=== PATIENT | male | born 1940 | race Caucasian/White ===

== ENCOUNTER 2018-06-18 16:44 | Inpatient (IN) | payer MEDICARE, OTHER ==
[~2018-06-18] VITALS: Ht 175.3 cm; Wt 60.9 kg
[2018-06-18 18:30] LABS: BASOPHIL % 0.1 % (0-2); PLATELET COUNT 227 x10^3mcL (130-400)
[2018-06-18 18:33] LABS: RED CELL DISTRIBUTION WIDTH 16.8 % (11.5-14.5)
[2018-06-18 18:40] LABS: CALCIUM 8.8 mg/dL (8.5-10.1); CARBON DIOXIDE 23.6 mmol/L (21-32); CHLORIDE SERUM 100 mmol/L (98-107); CREATININE SERUM 2.1 mg/dL (0.7-1.3); GLUCOSE SERUM 80 mg/dL (74-106); POTASSIUM SERUM 3.9 mmol/L (3.5-5.1); SODIUM SERUM 136 mmol/L (136-145)
[2018-06-18 18:53] LABS: ALBUMIN 3.4 g/dL (3.4-5.0); ALKALINE PHOSPHATASE 51 U/L (46-116); ALT/SGPT 28 U/L (16-63); AST/SGOT 87 U/L (15-37); BILIRUBIN TOTAL 0.36 mg/dL (0.20-1.00); LIPASE 178 IU/L (73-393)
[2018-06-18 18:54] LABS: TOTAL PROTEIN, SERUM 8.3 g/dL (6.4-8.2)
[2018-06-18] MEDS ORDERED: GOOD SENSE ASPI81 M3 (20:38)
[2018-06-18] MEDS ORDERED: ATENOLOL25 MG (20:38)
[2018-06-18] MEDS ORDERED: [UNRECOGNIZED DRUG - CODE] (20:39)
[2018-06-18 22:02] VITALS: BP 134/74
[2018-06-18 23:37] LABS: MAGNESIUM 1.7 mg/dL (1.8-2.4); PHOSPHOROUS 2.7 mg/dL (2.5-4.9)
[2018-06-18 23:40] LABS: CHOLESTEROL/HDL RATIO 2.4
[2018-06-19 05:50] VITALS: BP 151/51
[2018-06-19 05:56] VITALS: Ht 175.3 cm; Wt 60.9 kg
[2018-06-19 07:10] LABS: CALCIUM 8.4 mg/dL (8.5-10.1); CHLORIDE SERUM 103 mmol/L (98-107); CREATININE SERUM 1.7 mg/dL (0.7-1.3); GLUCOSE SERUM 82 mg/dL (74-106); MAGNESIUM 1.9 mg/dL (1.8-2.4); PHOSPHOROUS 3.4 mg/dL (2.5-4.9); POTASSIUM SERUM 4.2 mmol/L (3.5-5.1); SODIUM SERUM 137 mmol/L (136-145)
[2018-06-19 07:21] LABS: PLATELET COUNT 201 x10^3mcL (130-400)
[2018-06-19 07:24] LABS: BASOPHIL % 0 % (0-2); RED CELL DISTRIBUTION WIDTH 17.1 % (11.5-14.5)
[2018-06-19 08:36] VITALS: BP 151/51
[2018-06-19 08:57] VITALS: BP 169/57
[2018-06-19 11:39] LABS: UA SPECIFIC GRAVITY 1.025 (1.005-1.035); microscopic required? YES; urine erythrocyte 2+ (NEGATIVE)
[2018-06-19 16:15] VITALS: BP 170/65
[2018-06-19 21:55] VITALS: BP 146/49
[2018-06-20 05:42] VITALS: BP 98/56
[2018-06-20 06:56] LABS: CARBON DIOXIDE 21.2 mmol/L (21-32); CHLORIDE SERUM 99 mmol/L (98-107); CREATININE SERUM 1.4 mg/dL (0.7-1.3); GLUCOSE SERUM 87 mg/dL (74-106); MAGNESIUM 1.5 mg/dL (1.8-2.4); POTASSIUM SERUM 3.3 mmol/L (3.5-5.1); SODIUM SERUM 129 mmol/L (136-145)
[2018-06-20 08:41] VITALS: BP 134/50
[2018-06-20 09:28] LABS: PLATELET COUNT 208 x10^3mcL (130-400); RED CELL DISTRIBUTION WIDTH 17.4 % (11.5-14.5)
[2018-06-20 14:37] VITALS: BP 133/62
[2018-06-20 16:44] VITALS: BP 95/53
[2018-06-20 17:08] LABS: BAND NEUTROPHIL 11 % (0-10); MONOCYTE 9 % (0-7); SEGMENTED NEUTROPHILS 61 % (37-75)
[2018-06-20 17:09] LABS: PLATELET MORPHOLOGY PLATELETS NORMAL; ovalocyte/elliptocyte 1+; rbc morphology (normal/abnorm) ABNORMAL (NORMAL)
[2018-06-20 20:11] VITALS: BP 144/64
[2018-06-20 23:58] LABS: AMPHETAMINE QUAL UR NONE DETECTED (See below)
[2018-06-21 05:34] VITALS: BP 142/51
[2018-06-21 06:34] LABS: CALCIUM 8.1 mg/dL (8.5-10.1); CARBON DIOXIDE 24.2 mmol/L (21-32); CHLORIDE SERUM 102 mmol/L (98-107); CREATININE SERUM 1.3 mg/dL (0.7-1.3); GLUCOSE SERUM 84 mg/dL (74-106); MAGNESIUM 2.1 mg/dL (1.8-2.4); PHOSPHOROUS 2.6 mg/dL (2.5-4.9); POTASSIUM SERUM 4.6 mmol/L (3.5-5.1); SODIUM SERUM 132 mmol/L (136-145)
[2018-06-21 08:52] LABS: BASOPHIL % 0.1 % (0-2); PLATELET COUNT 201 x10^3mcL (130-400)
[2018-06-21 08:56] LABS: RED CELL DISTRIBUTION WIDTH 17.7 % (11.5-14.5)
[2018-06-21 09:32] VITALS: BP 151/51
[2018-06-21] MEDS ORDERED: TAMIFLU6 MG/ML PO (11:00)
[2018-06-21] MEDS ORDERED: CLOPIDOGREL75 M1 PO (11:00)
[2018-06-21 11:46] VITALS: BP 151/51
== END 2018-06-21 12:26 | disposition home or self-care (01) | DRG 67 ==
LOC: ED 16:44 → MU 20:19 → DU 20:19 → MU 21:57 → DU 06-19 10:22
PROVIDERS: Emergency Medicine; ADMIT Internal Medicine
DX: I65.21 Occlusion and stenosis of right carotid artery (principal); N18.6 End stage renal disease; M62.82 Rhabdomyolysis; N17.9 Acute kidney failure, unspecified; I12.0 Hypertensive chronic kidney disease with stage 5 chronic kidney disease or end stage renal disease; J09.X2 Influenza due to identified novel influenza A virus with other respiratory manifestations; E11.22 Type 2 diabetes mellitus with diabetic chronic kidney disease; E11.65 Type 2 diabetes mellitus with hyperglycemia; E11.9 Type 2 diabetes mellitus without complications; E83.42 Hypomagnesemia; E86.0 Dehydration; E87.6 Hypokalemia; G20 Parkinson's disease; I10 Essential (primary) hypertension; D63.8 Anemia in other chronic diseases classified elsewhere; F17.210 Nicotine dependence, cigarettes, uncomplicated; Z99.2 Dependence on renal dialysis; Z68.22 Body mass index [BMI] 22.0-22.9, adult; I69.392 Facial weakness following cerebral infarction
CPT/HCPCS: 82962; 83880; 84439; 87804; 97110-GP; 97116-GP; G0480; J0133; J0696; J2001; J3370; J3475; J7030; J7620; Q0092

== ENCOUNTER 2018-06-22 17:06 | Emergency (ER) | payer MEDICARE, OTHER ==
[~2018-06-22] VITALS: Ht 167.6 cm; Wt 64.5 kg
[~2018-06-22 17:06] MED LIST: ATENOLOL25 MG; CLOPIDOGREL75 M1 PO; GOOD SENSE ASPI81 M3; TAMIFLU6 MG/ML PO; [UNRECOGNIZED DRUG - CODE]
[2018-06-22 17:20] VITALS: Ht 167.6 cm; Wt 64.5 kg
[2018-06-22 18:00] LABS: PLATELET COUNT 269 x10^3mcL (130-400)
[2018-06-22 18:12] LABS: CALCIUM 8.8 mg/dL (8.5-10.1); CARBON DIOXIDE 26.2 mmol/L (21-32); CHLORIDE SERUM 103 mmol/L (98-107); CREATININE SERUM 1.4 mg/dL (0.7-1.3); GLUCOSE SERUM 110 mg/dL (74-106); SODIUM SERUM 138 mmol/L (136-145)
[2018-06-22 18:17] LABS: ALKALINE PHOSPHATASE 49 U/L (46-116); ALT/SGPT 29 U/L (16-63); AST/SGOT 47 U/L (15-37); BILIRUBIN TOTAL 0.47 mg/dL (0.20-1.00)
[2018-06-22 18:18] LABS: ALBUMIN 2.8 g/dL (3.4-5.0)
[2018-06-22 18:30] LABS: microscopic required? YES; urine erythrocyte 1+ (NEGATIVE)
[2018-06-22 19:09] LABS: BAND NEUTROPHIL 2 % (0-10); BASOPHIL 0 % (0-2); MONOCYTE 5 % (0-7); SEGMENTED NEUTROPHILS 57 % (37-75); rbc morphology (normal/abnorm) ABNORMAL (NORMAL)
[2018-06-22 19:12] LABS: PLATELET MORPHOLOGY PLATELETS NORMAL
[2018-06-22 19:31] VITALS: BP 153/56
== END 2018-06-22 19:31 | disposition home or self-care (01) ==
LOC: ED 17:06
PROVIDERS: Emergency Medicine
DX: J10.1 Influenza due to other identified influenza virus with other respiratory manifestations (principal); I10 Essential (primary) hypertension; F17.210 Nicotine dependence, cigarettes, uncomplicated
CPT/HCPCS: J1885

== ENCOUNTER 2018-08-17 14:58 | Emergency (ER) | payer MEDICARE, OTHER ==
[~2018-08-17] VITALS: Ht 167.6 cm; Wt 64.4 kg
[2018-08-17 15:36] VITALS: BP 135/61; Ht 167.6 cm; Wt 64.4 kg
== END 2018-08-17 16:00 | disposition left against medical advice (07) ==
LOC: ED 14:58
DX: Z53.21 Procedure and treatment not carried out due to patient leaving prior to being seen by health care provider (principal)

== ENCOUNTER 2019-02-04 12:46 | Emergency (ER) | payer MEDICARE, OTHER ==
[~2019-02-04] VITALS: Ht 167.6 cm; Wt 68.0 kg
[2019-02-04 12:53] VITALS: Ht 167.6 cm; Wt 68.0 kg
[2019-02-04 14:18] LABS: CALCIUM 8.5 mg/dL (8.5-10.1); CARBON DIOXIDE 25.8 mmol/L (21-32); CHLORIDE SERUM 104 mmol/L (98-107); CREATININE SERUM 1.5 mg/dL (0.7-1.3); GLUCOSE SERUM 77 mg/dL (74-106); POTASSIUM SERUM 4.1 mmol/L (3.5-5.1); SODIUM SERUM 139 mmol/L (136-145)
[2019-02-04 14:22] LABS: ALKALINE PHOSPHATASE 60 U/L (46-116); ALT/SGPT 16 U/L (16-63); AST/SGOT 19 U/L (15-37); BILIRUBIN TOTAL 0.3 mg/dL (0.20-1.00)
[2019-02-04 14:23] LABS: CHOLESTEROL 123 mg/dL (<200)
[2019-02-04 14:27] LABS: BASOPHIL % 0.3 % (0-2); PLATELET COUNT 350 x10^3mcL (130-400)
[2019-02-04 14:28] LABS: RED CELL DISTRIBUTION WIDTH 18.6 % (11.5-14.5)
[2019-02-04 16:36] VITALS: BP 92/53
== END 2019-02-04 16:43 | disposition home or self-care (01) ==
LOC: ED 12:46
PROVIDERS: Specialist
DX: R42 Dizziness and giddiness (principal); I10 Essential (primary) hypertension; E78.5 Hyperlipidemia, unspecified
CPT/HCPCS: 82962; G0480; J7030